=== PATIENT | female | born 1985 | race African-American/Black ===

== ENCOUNTER 2022-06-03 22:13 | Inpatient (IN) | payer OTHER ==
[~2022-06-03] VITALS: Ht 167.6 cm; Wt 108.4 kg
--- NOTE | 2022-06-03 22:28 | NUR ---
BLOOD SUGAR 466
[2022-06-03] MEDS ORDERED: IV NS 0.9% 1,000 ML BAG IV ONE (22:30)
[2022-06-03] MEDS ORDERED: ACETAMINOPHEN ES 500 MG TABLET ONE (22:42)
[2022-06-03] MEDS ORDERED: ONDANSETRON HCL/PF 4 MG/2 ML VIAL ONE (22:42)
--- NOTE | 2022-06-03 22:47 | NUR ---
RAC #20G S/L BLOOD COLLECTED AND SENT TO LAB
[2022-06-03] MEDS ORDERED: ACETAMINOPHEN ES 500 MG TABLET PO ONE (23:00)
[2022-06-03] MEDS ORDERED: ONDANSETRON HCL/PF 4 MG/2 ML VIAL IVP ONE (23:00)
[2022-06-03] MEDS ORDERED: CT SWABBABLE VALVE TRANS SET 1 EA INFUS.SET MC ONE (23:08)
[2022-06-03] MEDS ORDERED: IV NS 0.9% 250 ML IV ONE (23:08)
[2022-06-03] MEDS ORDERED: IOHEXOL-300 100 ML VIAL IV ONE (23:08)
[2022-06-03 23:16] LABS: BASOPHILS % (AUTO) 0.1 % (0.0-2.0); HEMATOCRIT 41 % (33-45); HEMOGLOBIN 12.4 g/dL (11.5-14.8); LYMPHOCYTES # (AUTO) 1.8 K/uL (0.8-4.8); LYMPHOCYTES % (AUTO) 13.2 % (20.0-44.0); MEAN CORPUSCULAR HGB CONC 30 g/dl (31.0-36.0); MEAN CORPUSCULAR VOLUME 79 fL (82-100); MONOCYTES # (AUTO) 0.9 K/uL (0.1-1.30); MONOCYTES % (AUTO) 6.8 % (2.0-12.0); NEUTROPHILS % (AUTO) 79.9 % (43.0-81.0); PLATELET COUNT (AUTO) 479 K/uL (150-450); RED BLOOD CELL COUNT(AUTO) 5.23 MIL/uL (4.0-5.2); WHITE BLOOD COUNT (AUTO) 13.8 K/uL (4.3-11.0)
[2022-06-03 23:39] LABS: ALBUMIN 3.2 g/dL (3.4-5.0); BILIRUBIN,DIRECT 0.2 mg/dL (0.0-0.2); BILIRUBIN,TOTAL 0.4 mg/dL (0.2-1.0); CREATININE 1.2 mg/dL (0.6-1.3)
--- NOTE | 2022-06-03 23:51 | NUR ---
CRITICAL LAB: GLUCOSE [address] LAW GARZA AWARE
[2022-06-03] MEDS ORDERED: INSULIN REGULAR, HUMAN 100 UNIT/ML 10 ML VIAL ONE (23:59)
[2022-06-04] VITALS (35 sets, daily range): BP systolic 124–158; BP diastolic 67–90
[2022-06-04] MEDS ORDERED: IV PREMIX NS +20MEQ KCL 1 L IV PRN
--- NOTE | 2022-06-04 00:05 | NUR ---
MRSA SWAB COLLECTED AND SENT TO LAB. PATIENT'S BELONGINGS LIST DONE.
[2022-06-04] MEDS ORDERED: IV PREMIX NS +20MEQ KCL 1 L IV ONE (00:19)
[2022-06-04] MEDS: INSULIN REGULAR, HUMAN 100 UNITS in IV NS 0.9% 100 ML IV PRN ×4 (00:35→04:27)
--- NOTE | 2022-06-04 01:12 | NUR ---
PT TAKEN FOR CT
--- NOTE | 2022-06-04 01:30 | NUR ---
Accucheck 376, insulin adjusted=7.5 units/hr
--- NOTE | 2022-06-04 01:48 | NUR ---
telephone call from MAURICIO Sol regarding pt's current status.
--- NOTE | 2022-06-04 01:49 | NUR ---
HR noted consistently at 160-170's, ST on the monitor. Dr Gilbert notified, order received for EKG
--- NOTE | 2022-06-04 01:53 | NUR ---
EKG resulted, ST with PVC's, Dr Gilbert made aware
[2022-06-04] MEDS ORDERED: IV NS 0.9% 1,000 ML IV ONE (02:30)
--- NOTE | 2022-06-04 02:38 | NUR ---
Report arnoldo Metzger RN
--- NOTE | 2022-06-04 02:40 | NUR ---
covid swab collected, sent to lab
--- NOTE | 2022-06-04 02:42 | NUR ---
Awaiting update from Sweta [facility] transfer shelby if OK to admit inpatient or if patient will be transferred
--- NOTE | 2022-06-04 03:00 | NUR ---
Accucheck 276, insulin adjusted=5.5 units/hr
[2022-06-04] MEDS ORDERED: SODIUM BICARBONATE SYR 50 MEQ/50 ML DISP.SYRIN IV ONE (03:30)
[2022-06-04] MEDS ORDERED: ONDANSETRON HCL/PF 4 MG/2 ML VIAL IVP PRN (03:30)
[2022-06-04] MEDS ORDERED: IV NS 0.9% 1,000 ML IV PRN (03:30)
[2022-06-04] MEDS ORDERED: CEFTRIAXONE 1 G in IV D5W 50 ML IV SCH (03:30)
[2022-06-04] MEDS ORDERED: DEXTROSE 50%-WATER 50 ML DISP.SYRIN IV PRN ×2 (03:30→14:00)
--- NOTE | 2022-06-04 03:46 | NUR ---
WHOLESALE MANAGER AT PT'S BEDSIDE
[2022-06-04] MEDS: BLOOD SUGAR DIAGNOSTIC 1 EACH STRIP IN SCH ×10 (04:03→13:29)
--- NOTE | 2022-06-04 04:09 | NUR ---
Patient transferred to ICU 260 via ACLS protocol.
[2022-06-04 04:10] LABS: CALCIUM, SERUM 9.9 mg/dL (8.5-10.1); MAGNESIUM 1.6 mg/dL (1.8-2.4); PHOSPHORUS 3.5 mg/dL (2.5-4.9); POTASSIUM 4.6 mmol/L (3.5-5.1)
--- NOTE | 2022-06-04 04:10 | NUR ---
RN NOTES ADMITTED A 36 Y/O FEMALE PATIENT FROM ER WITH DIAGNOSIS OF DKA. ON ROIOM AIR SATING 99% NO SOB NO DISTRESS NOTED AT THIS TIME. [id number] IV ACCESS AT R AC @#20 PATENT FLUSHES WELL RUNNING INSULIN DRIP AT 4.84 UNIT/HR BS CHECKED 242MG/DL. NS 1L + 20 MEQ KCL RUNNING 250ML/HR. SAFELY TRANSFER TO BED. HOOKED TO ON SITE SERVICES SPECIALIST. SKIN ASSESSMENT DONE. BELONGINGS ACCOUNTED. ALL SAFETY MEASURES IN PLACE AT ALL TIMES. HOB ELEVATED. BED ON LOWEST POSITION AND LOCKED. WILL CONTINUE TO MONITOR THE PATIENT
[2022-06-04] MEDS: INSULIN REGULAR, HUMAN 100 UNIT in IV NS 0.9% 99 ML IV PRN ×8 (04:32→07:05)
[2022-06-04] MEDS ORDERED: CEFTRIAXONE 1 G VIAL ONE (04:34)
[2022-06-04] MEDS ORDERED: POTASSIUM CL. PREMIX PERIPHER. 0 ML ONE (04:51)
--- NOTE | 2022-06-04 05:00 | NUR ---
RN NOTES BS CHECKED 217 MG/DL ADJUSTED INSULIN DRIP TO 4.34 PER PROTOCOL
--- NOTE | 2022-06-04 05:10 | NUR ---
RN NOTES RELAYED LACTIC ACID 2.3 TO ASPEN TAGMAN WITH NNO AT THIS TIME
[2022-06-04 06:00] LABS: CREATININE 0.9 mg/dL (0.6-1.3)
--- NOTE | 2022-06-04 06:00 | NUR ---
RN NOTES BS 216MG/DL INSULIN DRIP DECREASE TO 4.32 UNITS/HR., PLUMBER'S ASSISTANT ASPEN INFORMED WITH NEW ORDER TO D/C NS 120 ML/HR AND START D51/2 NS @120 ML/HR
[2022-06-04 06:04] LABS: MAGNESIUM 1.6 mg/dL (1.8-2.4); PHOSPHORUS 3.2 mg/dL (2.5-4.9)
[2022-06-04] MEDS ORDERED: IV D5/0.45 NACL 1,000 ML IV PRN (06:30)
[2022-06-04] MEDS ORDERED: Potassium Chloride 20 MEQ in IV NS 0.9% 1,000 ML IV SCH (07:00)
--- NOTE | 2022-06-04 07:05 | NUR ---
RN NOTES BS 209 MG/DL INSULIN DRID DECREASE TO 4.18 U/HR. ALL DUE MEDS GIVEN ORDERD. ALL NEEDS ATTENDED. KEPT CLEAN AND DSRY AT ALL TIMES. ENDORSED TO MORNING RN FOR AROLDO
[2022-06-04] MEDS: PANTOPRAZOLE 40 MG VIAL IV SCH (09:14)
[2022-06-04] MEDS: Magnesium 1GM/D5W 100ML PREMIX 100 ML IV SCH ×2 (09:14→10:20)
[2022-06-04] MEDS ORDERED: HYDR-3980 PO (09:31)
[2022-06-04] MEDS ORDERED: ALPR0.5T8 PO (09:31)
[2022-06-04] MEDS ORDERED: METF-440 PO (09:31)
--- NOTE | 2022-06-04 09:34 | NUR ---
DR. DIAZ WAS NOTIFIED REGARDING: EKG RESULT, RECENT NJ=371, AND RECENT BMP/LABS. AWAITING MD RESPONSE.
--- NOTE | 2022-06-04 10:28 | NUR ---
DR. DIAZ AT PATIENT'S BEDSIDE SEEN PT.
[2022-06-04 10:53] LABS: CALCIUM, SERUM 9.6 mg/dL (8.5-10.1); CREATININE 0.9 mg/dL (0.6-1.3); POTASSIUM 3.5 mmol/L (3.5-5.1)
[2022-06-04] MEDS ORDERED: INSULIN GLARGINE, 100 UNIT/ML CARTRIDGE SQ ONE (11:30)
[2022-06-04] MEDS: ENOXAPARIN SODIUM 40 MG/0.4 ML DISP.SYRIN SQ SCH (11:49)
--- NOTE | 2022-06-04 12:02 | NUR ---
DR. JAVIER SEEN PATIENT NOW.
[2022-06-04 13:34] LABS: BILIRUBIN,URINE 2+ (NEGATIVE); COLOR,URINE YELLOW (YELLOW); LEUKOCYTE ESTERASE ,URINE NEGATIVE (NEGATIVE); NITRITE, URINE NEGATIVE (NEGATIVE); PROTEIN,URINE TRACE mg/dl (NEGATIVE); UGLUCOSE 1+ mg/dL (NEGATIVE); UROBILINOGEN,URINE 0.2 EU/dL (0.2)
[2022-06-04 13:47] LABS: BACTERIA,URINE Few /HPF (None Seen); WBC,URINE NONE SEEN /HPF (0-3)
[2022-06-04 13:48] LABS: SQUAMOUS EPITHELIAL CELL,UR Moderate /HPF (None Seen); URINE AMORPHOUS URATE Many /HPF (None Seen)
[2022-06-04] MEDS: IV NS 0.9% 1,000 ML IV SCH ×2 (13:59→21:12)
[2022-06-04] MEDS: INSULIN REGULAR, HUMAN 100 UNIT/ML 3 ML VIAL SQ PRN (17:28)
[2022-06-04] MEDS: BLOOD SUGAR DIAGNOSTIC 1 EACH STRIP VI SCH ×2 (17:29→22:00)
--- NOTE | 2022-06-04 18:44 | NUR ---
LEFT A MESSAGE TO DR. DIAZ THAT PATIENT IS REQUESTING PAIN MEDICINE FOR ABDOMINAL ACHE. AWAITING MD RESPONSE. WILL ENDORSE TO BOBY BEDOYA.
--- NOTE | 2022-06-04 18:58 | NUR ---
ENDORSED TO APOLINAR THAT MADE DR. DIAZ AWARE THAT PATIENT IS REQUESTING PAIN MEDICINE FOR ABDOMINAL ACHE. STILL AWAITING MD RESPONSE AND TO MAKE FOLLOW-UP, MANN STATES "YES."
[2022-06-04] MEDS: *INSULIN REGULAR(HUMULIN R)HUM 100 UNIT/ML VIAL SQ PRN (21:19)
[2022-06-05] VITALS (13 sets, daily range): BP systolic 128–152; BP diastolic 46–82
--- NOTE | 2022-06-05 | NUR ---
RECEIVED THE PT REST IN BED. AWAKE, ALERT FOLLOW COMMANDS. BIOMETRICIAN SHOWING NSR. IV RT UPPER ARM MID LINE. IVF NS 150 ML/H. HOB ELEVATED WILL CONTINUE TO MONITOR VITALS
[2022-06-05] MEDS: IV NS 0.9% 1,000 ML IV SCH ×4 (03:44→23:28)
[2022-06-05] MEDS: CEFTRIAXONE 1 G in IV D5W 50 ML IV SCH (04:13)
[2022-06-05] MEDS: ACETAMINOPHEN 325 MG TABLET PO PRN ×3 (04:13→16:22)
[2022-06-05 04:47] LABS: CALCIUM, SERUM 9.3 mg/dL (8.5-10.1); CREATININE 0.6 mg/dL (0.6-1.3); MAGNESIUM 1.4 mg/dL (1.8-2.4); PHOSPHORUS 3.9 mg/dL (2.5-4.9)
[2022-06-05 04:48] LABS: BASOPHILS # (AUTO) 0.1 K/uL (0.0-0.2); BASOPHILS % (AUTO) 0.7 % (0.0-2.0); EOSINOPHILS % (AUTO) 1.2 % (0.0-6.0); HEMATOCRIT 29 % (33-45); HEMOGLOBIN 9.1 g/dL (11.5-14.8); LYMPHOCYTES # (AUTO) 3.7 K/uL (0.8-4.8); LYMPHOCYTES % (AUTO) 40.1 % (20.0-44.0); MEAN CORPUSCULAR HGB CONC 32 g/dl (31.0-36.0); MEAN CORPUSCULAR VOLUME 76 fL (82-100); MONOCYTES # (AUTO) 0.9 K/uL (0.1-1.30); NEUTROPHILS # (AUTO) 4.4 K/uL (1.8-8.9); PLATELET COUNT (AUTO) 315 K/uL (150-450); RED BLOOD CELL COUNT(AUTO) 3.79 MIL/uL (4.0-5.2); WHITE BLOOD COUNT (AUTO) 9.3 K/uL (4.3-11.0)
--- NOTE | 2022-06-05 04:48 | NUR ---
REVIEW APPRAISER. AM CARE GIVEN. REMAINING SAME IVF NS 150 ML/H, HOB ELEVATED. PT C/O HEADACHE TYLENOL GIVEN PER ORDER. WILL CONTINUE TO MONITOR VITALS.
--- NOTE | 2022-06-05 07:27 | NUR ---
WOUND CARE CONSULT: PT PRESENTS WITH SOME RASH/SKIN IRRITATION TO PERIANAL AREA/INNER BUTTOCKS, BREASTFOLDS AND PERINEUM, PRESENT ON ADMISSION. RECOMMENDATIONS MADE FOR SKIN PROTECTION. DISCUSSED WITH NURSING STAFF. MD IN AGREEMENT WITH PLAN OF CARE. PT IS CONTINENT AND INDEPENDENT WITH BED MOBILITY.
[2022-06-05] MEDS ORDERED: Z GUARD REMEDY 4 OZ OINT TP PRN (07:30)
[2022-06-05] MEDS: BLOOD SUGAR DIAGNOSTIC 1 EACH STRIP VI SCH ×4 (07:30→22:33)
--- NOTE | 2022-06-05 07:44 | NUR ---
rn notes get patient a/o x4, was complaining of headache, administered Tylenol 650 mg po prn, also has itching on vaginal area, skin assessment done get order wound consult. needs assisted, and anticipated. call light within to reach. will follow up.
[2022-06-05] MEDS: PANTOPRAZOLE 40 MG VIAL IV SCH (08:30)
[2022-06-05] MEDS: POTASSIUM CHLORIDE 20 MEQ TAB.PRT.SR PO SCH ×3 (08:31→09:52)
[2022-06-05] MEDS: CLOTRIMAZOLE 1% 15 GM TUBE TP SCH ×2 (08:31→17:41)
[2022-06-05] MEDS: Magnesium 1GM/D5W 100ML PREMIX 100 ML IV SCH ×2 (08:32→09:41)
[2022-06-05] MEDS: ENOXAPARIN SODIUM 40 MG/0.4 ML DISP.SYRIN SQ SCH (08:36)
[2022-06-05 08:44] LABS: ABG BASE EXCESS -5.6 mmol/L; ABG OXYGEN SATURATION 92.2 % (92.0-98.5); ABG PCO2 34.3 mmHg (35.0-45.0); ABG PH 7.362 (7.350-7.450); ABG PO2 65.6 mmHg (75.0-100.0); COHb 0.9 % (0.5-1.5); MetHb 0.1 % (0.0-1.5); O2Hb 91.3 % (94.0-97.0); SITE, ABG Other; VENT MODE, BG room air
[2022-06-05] MEDS: Z GUARD REMEDY 4 OZ OINT TP SCH (09:05)
[2022-06-05] MEDS: INSULIN REGULAR, HUMAN 100 UNIT/ML 3 ML VIAL SQ PRN ×3 (09:40→17:52)
--- NOTE | 2022-06-05 10:00 | NUR ---
rn notes get verbal order via hospitalist Dr Valerio psych consultation, because of hard to follow direction, anxious, crying, arguing each procedure, and removing tubing.
--- NOTE | 2022-06-05 10:30 | NUR ---
rn notes transferred patient to the med/surg room 111 bed 1 within stable condition, vss, patient room air. bedside report given AURELIANO Josue follow plan of care.
--- NOTE | 2022-06-05 10:35 | NUR ---
rn notes RECEIVED REPORT FROM [facility] PARTS REPRESENTATIVE FOR CONTUITY OF CARE. PT STABLE CONDITION. ALERT AND ORIENTED X4.
[2022-06-05] MEDS ORDERED: POTASSIUM CHLORIDE 20 MEQ TAB.PRT.SR PO SCH (11:30)
--- NOTE | 2022-06-05 12:06 | NUR ---
RN NOTE NOTIFIED THAT PT WANTS TO SPEAK WITH . SPOKE WKITH PATIENT AND WAS UPDATED ABOUT CONDITION
[2022-06-05] MEDS ORDERED: HYDROCODONE/APAP 10/325MG TABLET PO PRN (13:30)
[2022-06-05] MEDS ORDERED: ALPRAZOLAM 0.5 MG TABLET PO PRN (13:30)
--- NOTE | 2022-06-05 14:00 | NUR ---
RN NOTE ROUNDS MADE. PT ROOM SUSPICIOUS SMELL OF MARIJUANA. NOTIFIED SECURITY. SECRUITY EDUCATED AND EXPLAINED THE RISKS OF SMOKING IN THE ROOM. PT AND RELATIVE AT BEDSIDE VERBALIZED UNDERSTANDING
--- NOTE | 2022-06-05 18:57 | NUR ---
RN NOTE NOTIFIED THAT PT WANTS NORMAL SALINE TO BE DISCONTINUED. AWARE AND SAID OKAY.
--- NOTE | 2022-06-05 19:15 | NUR ---
MS AURELIANO CLOSING NOTE RECEIVED PT SITTING ON BED, A/O X4. AT BEDSIDE. ON ROOM AIR TOLERATING WELL. DENIES ANY PAIN AT THIS TIME. MISAEL MIDLINE #18G, PATENT AND FLUSHES WELL. SAFETY MEASURES IN PLACE: BED LOCKED AND IN LOW POSITION, SIDE RAILS UP X2, CALL LIGHT AND TRAY TABLE WITHIN REACH. WILL CONTINUE TO MONITOR AND ASSIST. Addendum: 06/05/22 at 2049 by COOKIE BENNETT RN CORRECTION: MS BEDOYA OPENING NOTE
--- NOTE | 2022-06-05 19:58 | NUR ---
RN CLOSING NOTE PT ALERT AND ORIENTED X4. PT IS MED SURG STATUS. FAMILY AT BEDSIDE. PT IS ON ROOM AIR TOLERATING WELL. RUPPER ARM MIDLINE. PT MED SURG STATUS. IV INTACT PATENT AND FLUSHES WELL. PT IS AMBULATORY. PT COMPLAINS OF NO PAIN OR DISCOMFORT NOTED AT THIS TIME. PT IS MED SURG STATUS. ALL SAFETY MEASURES IN PLACE PER HOSPITAL PROTOCOL.
[2022-06-05] MEDS ORDERED: INSULIN GLARGINE, 100 UNIT/ML CARTRIDGE SQ SCH ×2 (22:00)
[2022-06-05] MEDS: *INSULIN REGULAR(HUMULIN R)HUM 100 UNIT/ML VIAL SQ PRN (22:45)
[2022-06-06] VITALS: BP 138/82
[2022-06-06] MEDS: ACETAMINOPHEN 325 MG TABLET PO PRN (02:46)
[2022-06-06 04:00] VITALS: BP 135/75
[2022-06-06 04:17] LABS: BASOPHILS % (AUTO) 0.3 % (0.0-2.0); EOSINOPHILS % (AUTO) 1.3 % (0.0-6.0); HEMATOCRIT 27 % (33-45); HEMOGLOBIN 8.7 g/dL (11.5-14.8); LYMPHOCYTES # (AUTO) 3.1 K/uL (0.8-4.8); MEAN CORPUSCULAR HGB CONC 32 g/dl (31.0-36.0); MEAN CORPUSCULAR VOLUME 75 fL (82-100); MONOCYTES # (AUTO) 0.7 K/uL (0.1-1.30); MONOCYTES % (AUTO) 9.1 % (2.0-12.0); NEUTROPHILS % (AUTO) 50.3 % (43.0-81.0); PLATELET COUNT (AUTO) 274 K/uL (150-450); RED BLOOD CELL COUNT(AUTO) 3.59 MIL/uL (4.0-5.2); WHITE BLOOD COUNT (AUTO) 7.9 K/uL (4.3-11.0)
[2022-06-06 04:29] LABS: CREATININE 0.5 mg/dL (0.6-1.3); MAGNESIUM 1.6 mg/dL (1.8-2.4); PHOSPHORUS 4.3 mg/dL (2.5-4.9); POTASSIUM 3.6 mmol/L (3.5-5.1)
[2022-06-06] MEDS ORDERED: CEFTRIAXONE 1 G VIAL ONE (04:29)
[2022-06-06] MEDS: CEFTRIAXONE 1 G in IV D5W 50 ML IV SCH (04:38)
[2022-06-06] MEDS: BLOOD SUGAR DIAGNOSTIC 1 EACH STRIP VI SCH (06:53)
[2022-06-06] MEDS: INSULIN REGULAR, HUMAN 100 UNIT/ML 3 ML VIAL SQ PRN (06:56)
--- NOTE | 2022-06-06 07:15 | NUR ---
TECHNICAL IMPLEMENTATION LEAD CLOSING NOTE PT LYING ON BED AWAKE AT THIS TIME. A/O X4, AT BEDSIDE, COOPERATIVE. ASKED MULTIPLE TIMES ABOUT UPDATES ON DISCHARGE TIMELINE. STABLE ON ROOM AIR TOLERATING WELL. ON TELE MONITOR READING SR 91. DENIES ANY PAIN AT THIS TIME. MISAEL MIDLINE #18G, PATENT AND FLUSHES WELL. ALL CARE PROVIDED AND MEDS TOLERATED WELL. SAFETY MEASURES MAINTAINED: BED LOCKED AND IN LOW POSITION, SIDE RAILS UP X2, CALL LIGHT AND TRAY TABLE WITHIN REACH. WILL ENDORSE AROLDO TO DAY SHIFT NURSE.
[2022-06-06] MEDS ORDERED: PANTOPRAZOLE 40 MG TABLET.DR PO SCH (07:30)
[2022-06-06 07:48] LABS: THYROID STIMULATING HORMONE < 0.007 uIU/mL (0.358-3.74)
[2022-06-06 08:00] VITALS: BP 129/74
[2022-06-06 08:25] VITALS: BP 129/74
[2022-06-06] MEDS: ENOXAPARIN SODIUM 40 MG/0.4 ML DISP.SYRIN SQ SCH (08:27)
[2022-06-06] MEDS: Z GUARD REMEDY 4 OZ OINT TP SCH (08:28)
[2022-06-06] MEDS: CLOTRIMAZOLE 1% 15 GM TUBE TP SCH (08:28)
--- NOTE | 2022-06-06 08:45 | NUR ---
RN NOTE PATIENT ASKED TO GO HOME, I INFORMED HER YOU CAN WAIT AND SEE THE DR. NICHOLAS OTHERWISE YOU CAN LEAVE AGAINST AMA; PATIENT STATED THAT SHE WANT TO HAVE PRESCRIPTION BEFORE SHE LEAVES, DR. NICHOLAS NOTIFIED BY TEXT SHE STATED THAT SHE WILL COME IN 45 MINUTES TO TALK TO THE PATIENT. I INFORMED PATIENT CAN YOU WAIT 45 MIN SHE SAID YES.
[2022-06-06] MEDS ORDERED: CARVEDILOL 12.5 MG TABLET PO SCH (09:00)
[2022-06-06] MEDS ORDERED: METF-440 PO (10:56)
[2022-06-06] MEDS ORDERED: EMPA10TA PO (10:56)
[2022-06-06] MEDS ORDERED: CARV12.52 PO (10:56)
--- NOTE | 2022-06-06 12:42 | NUR ---
FOUR CORNER FORMER MACHINE OPERATOR NOTE DR. NICHOLAS DISCHARGE THE PATIENT WHEN PATIENT REQUESTED TO LEAVE. ALL DISCHARGE INSTRUCTION NEW MEDICATION EDUCATION LIST ALL GIVEN TO THE PATIENT, PATIENT VERBALIZED UNDERSTANDING. PATIENT'S VITALS WITHIN NORMAL LEVEL UPON DISCHARGE. PATIENT'S MISAEL MIDLINE REMOVED. DISCHARGE CONSENT FORM AND BELONGING LIST FORM SIGNED BY PATIENT, PLACED IN PATIENT'S CHART. PATIENT INSTRUCTED ON COMING BACK TO ER IF SHE DEVELOPED NEW SYMPTOMS.
== END 2022-06-06 11:29 | disposition home or self-care (01) | DRG 420 ==
LOC: ER 22:24 → ICU 06-04 02:19 → MEDSG1 06-05 09:59 → TELE1 06-05 10:27
PROVIDERS: ADMIT Nurse Practitioner Acute Care; ATTEND Nurse Practitioner Acute Care
PROC: 05HD33Z Insertion of Infusion Device into Right Cephalic Vein, Percutaneous Approach (ICD-10-PCS; principal; 2022-06-04)
DX: E11.10 Type 2 diabetes mellitus with ketoacidosis without coma (principal); D68.59 Other primary thrombophilia; E44.1 Mild protein-calorie malnutrition; E88.09 Other disorders of plasma-protein metabolism, not elsewhere classified; D75.839 Thrombocytosis, unspecified; J98.11 Atelectasis; E87.1 Hypo-osmolality and hyponatremia; G47.33 Obstructive sleep apnea (adult) (pediatric); Z20.822 Contact with and (suspected) exposure to COVID-19; Z79.84 Long term (current) use of oral hypoglycemic drugs; Z68.35 Body mass index [BMI] 35.0-35.9, adult; D72.829 Elevated white blood cell count, unspecified; E66.01 Morbid (severe) obesity due to excess calories; R00.0 Tachycardia, unspecified; E83.42 Hypomagnesemia; E87.6 Hypokalemia; D25.9 Leiomyoma of uterus, unspecified
CPT/HCPCS: 36410; 36415; 36600; 71045-TC; 80048-TC; 80076-TC; 81001; 82803-TC; 82962-TC; 83605-TC; 83690-TC; 83735-TC; 84100-TC; 84439-TC; 84443-TC; 84703-TC; 85025-TC; 87081-TC; 87086-TC; 93307-TC; C9113; G0378; J0696; J1650; J1815; J2405; J3475; J3480; J3490; J7030; J7050; J7060; Q9967

== ENCOUNTER 2022-08-13 14:32 | Emergency (ER) | payer OTHER ==
[~2022-08-13] VITALS: Ht 167.6 cm; Wt 108.9 kg
[~2022-08-13 14:32] MED LIST: ALPR0.5T8 PO; CARV12.52 PO; EMPA10TA PO; HYDR-3980 PO; METF-440 PO
[2022-08-13] MEDS ORDERED: IV NS 0.9% 1,000 ML BAG IV ONE (18:00)
[2022-08-13 18:53] LABS: BASOPHILS % (AUTO) 0.4 % (0.0-2.0); EOSINOPHILS % (AUTO) 1.2 % (0.0-6.0); HEMATOCRIT 37 % (33-45); LYMPHOCYTES # (AUTO) 4.5 K/uL (0.8-4.8); LYMPHOCYTES % (AUTO) 44.5 % (20.0-44.0); MEAN CORPUSCULAR HGB CONC 33 g/dl (31.0-36.0); MEAN CORPUSCULAR VOLUME 78 fL (82-100); MONOCYTES # (AUTO) 0.7 K/uL (0.1-1.30); MONOCYTES % (AUTO) 7.5 % (2.0-12.0); NEUTROPHILS # (AUTO) 4.7 K/uL (1.8-8.9); NEUTROPHILS % (AUTO) 46.4 % (43.0-81.0); PLATELET COUNT (AUTO) 378 K/uL (150-450)
[2022-08-13 19:07] LABS: CARBON DIOXIDE 26 mmol/L (21-32); CHLORIDE 88 mmol/L (98-107); CREATININE 0.8 mg/dL (0.6-1.3); POTASSIUM 4.6 mmol/L (3.5-5.1); SODIUM SERUM 122 mmol/L (136-145); UREA NITROGEN, BLOOD 11 mg/dL (7-18)
[2022-08-13 19:10] LABS: GLUCOSE 726 mg/dL (74-106)
[2022-08-13 19:16] LABS: ALANINE AMINOTRANSFERASE 18 U/L (12-78); ALBUMIN 3.3 g/dL (3.4-5.0); ALKALINE PHOSPHATASE 224 U/L (46-116); ASPARTATE AMINOTRANSFERASE 8 U/L (15-37); BILIRUBIN,TOTAL 0.3 mg/dL (0.2-1.0); TOTAL PROTEIN, SERUM 7.4 g/dL (6.4-8.2)
[2022-08-13] MEDS ORDERED: IV NS 0.9% 1,000 ML IV ONE (19:30)
--- NOTE | 2022-08-13 20:37 | NUR ---
URINE COLLECTED AND SENT TO LAB
[2022-08-13] MEDS ORDERED: LANC-576 MC (21:04)
[2022-08-13] MEDS ORDERED: BLOO-1281 MC (21:04)
[2022-08-13] MEDS ORDERED: BENZ-13 PO (21:04)
[2022-08-13] MEDS ORDERED: LORA10TA7 PO (21:04)
[2022-08-13 22:07] LABS: BILIRUBIN,URINE NEGATIVE (NEGATIVE); COLOR,URINE YELLOW (YELLOW); LEUKOCYTE ESTERASE ,URINE NEGATIVE (NEGATIVE); NITRITE, URINE NEGATIVE (NEGATIVE); PH,URINE 6.5 (5.0-8.0); PROTEIN,URINE NEGATIVE (NEGATIVE); UGLUCOSE 3+ mg/dL (NEGATIVE); UROBILINOGEN,URINE 0.2 EU/dL (0.2)
[2022-08-13 22:20] LABS: BACTERIA,URINE None seen /HPF (None Seen); RBC,URINE 0-2 /HPF (0-2); SQUAMOUS EPITHELIAL CELL,UR 0-2 /HPF (None Seen); WBC,URINE 0-2 /HPF (0-3)
[2022-08-13 22:21] LABS: YEAST,URINE Few /HPF (None Seen)
[2022-08-13] MEDS ORDERED: FLUC150T PO (23:06)
--- NOTE | 2022-08-13 23:15 | NUR ---
Patient discharged to home in stable condition. Written and verbal after care instructions given. Patient verbalizes understanding of instruction.IV removed. Catheter intact and site benign. Pressure and 4x4 applied to site. No bleeding noted.
[2022-08-14 04:07] VITALS: BP 145/69
== END 2022-08-13 23:15 | disposition home or self-care (01) ==
LOC: ER 14:39
DX: J06.9 Acute upper respiratory infection, unspecified (principal); E11.65 Type 2 diabetes mellitus with hyperglycemia; Z60.2 Problems related to living alone; Z79.899 Other long term (current) drug therapy
CPT/HCPCS: 99285; 96360; 71045; 96361; 93005; 85025; 80048; 80076; 84703; 81001; 36415; 84484; 83880; 82962; J7030

== ENCOUNTER 2022-09-21 17:12 | Inpatient (IN) | payer OTHER ==
[~2022-09-21] VITALS: Ht 165.1 cm; Wt 97.1 kg
[~2022-09-21 17:12] MED LIST changes: +BENZ-13 PO; +BLOO-1281 MC; +FLUC150T PO; +LANC-576 MC; +LORA10TA7 PO
[2022-09-21] MEDS ORDERED: IV NS 0.9% 1,000 ML IV ONE ×2 (17:30→19:00)
[2022-09-21] MEDS ORDERED: ONDANSETRON HCL/PF 4 MG/2 ML VIAL ONE ×2 (17:45→19:06)
--- NOTE | 2022-09-21 17:49 | NUR ---
[id number] HOME C/O LOWER ABDOMEN/PELVIC AND VAGINAL PAIN, +NAUSEA X 2 DAYS ALSO C/O SORETHROAT
[2022-09-21] MEDS ORDERED: ONDANSETRON HCL/PF - ER 4 MG/2 ML VIAL IV ONE ×2 (18:00→19:00)
[2022-09-21] MEDS ORDERED: IV NS 0.9% 1,000 ML BAG IV ONE (18:00)
[2022-09-21] MEDS ORDERED: CEFTRIAXONE 1GM BAG (ER ONLY) 50 ML IV ONE (18:00)
[2022-09-21 18:34] LABS: BASOPHILS % (AUTO) 0.1 % (0.0-2.0); EOSINOPHILS % (AUTO) 0.1 % (0.0-6.0); HEMATOCRIT 47 % (33-45); HEMOGLOBIN 14.2 g/dL (11.5-14.8); LYMPHOCYTES # (AUTO) 1.4 K/uL (0.8-4.8); LYMPHOCYTES % (AUTO) 15.1 % (20.0-44.0); MEAN CORPUSCULAR HGB CONC 30 g/dl (31.0-36.0); MEAN CORPUSCULAR VOLUME 81 fL (82-100); MONOCYTES # (AUTO) 0.8 K/uL (0.1-1.30); MONOCYTES % (AUTO) 8.3 % (2.0-12.0); NEUTROPHILS # (AUTO) 7.3 K/uL (1.8-8.9); NEUTROPHILS % (AUTO) 76.4 % (43.0-81.0); PLATELET COUNT (AUTO) 337 K/uL (150-450); RED BLOOD CELL COUNT(AUTO) 5.78 MIL/uL (4.0-5.2); WHITE BLOOD COUNT (AUTO) 9.6 K/uL (4.3-11.0)
[2022-09-21 18:50] LABS: CREATININE 0.9 mg/dL (0.6-1.3); POTASSIUM 4.8 mmol/L (3.5-5.1)
[2022-09-21 18:52] LABS: ALBUMIN 3.2 g/dL (3.4-5.0); BILIRUBIN,DIRECT 0.1 mg/dL (0.0-0.2); BILIRUBIN,TOTAL 0.5 mg/dL (0.2-1.0); TOTAL PROTEIN, SERUM 8.9 g/dL (6.4-8.2)
[2022-09-21] MEDS ORDERED: MORPHINE SULFATE INJ 2 MG/ML DISP.SYRIN IV ONE ×2 (19:00→21:00)
[2022-09-21] MEDS ORDERED: MORPHINE SULFATE INJ 4 MG/ML DISP.SYRIN ONE (19:07)
[2022-09-21 19:31] LABS: BILIRUBIN,URINE 2+ (NEGATIVE); COLOR,URINE YELLOW (YELLOW); LEUKOCYTE ESTERASE ,URINE NEGATIVE (NEGATIVE); NITRITE, URINE NEGATIVE (NEGATIVE); PH,URINE 5.5 (5.0-8.0); PROTEIN,URINE 1+ mg/dl (NEGATIVE); UGLUCOSE 2+ mg/dL (NEGATIVE); UROBILINOGEN,URINE 0.2 EU/dL (0.2)
--- NOTE | 2022-09-21 19:38 | NUR ---
Patient AOx4, able to express er concerns, Patients BF at bedside, per pts request. Patietn states feeling weak aand fatigue. Discussed plan of care, patietn verbalizedagreement. Bedside commode set up in room per patients request, does not wish to use bed strong. All safety precatution explained to patient and implemented. Will continue to monitor throughout shift.
--- NOTE | 2022-09-21 19:45 | NUR ---
Urine collected, sent to lab
--- NOTE | 2022-09-21 19:48 | NUR ---
Blood Culture collected, sent to lab
[2022-09-21] MEDS ORDERED: IV PREMIX NS +20MEQ KCL 1 L IV PRN (20:00)
[2022-09-21] MEDS ORDERED: IV D5/ 0.9% NACL 1,000 ML IV PRN (20:00)
--- NOTE | 2022-09-21 20:08 | NUR ---
[facility] ph. [phone] clinical information on patient for possible transfer. fx. [phone]
[2022-09-21 20:17] LABS: SITE, VBG Right Radial; VBG AaDO2 15.5 mmHg; VBG COHb 0.8 %; VBG MetHb 0.1 %; VBG O2Hb 96.2 %; VBG OXYGEN SATURATION 97.1 %; VENT MODE, VBG Room Air
[2022-09-21] MEDS ORDERED: IOHEXOL-300 100 ML VIAL IV ONE (20:22)
[2022-09-21] MEDS ORDERED: CT SWABBABLE VALVE TRANS SET 1 EA INFUS.SET MC ONE (20:22)
[2022-09-21] MEDS ORDERED: IV NS 0.9% 250 ML IV ONE (20:22)
--- NOTE | 2022-09-21 20:27 | NUR ---
DR SAAVEDRA ON PHONE CALL [facility]
[2022-09-21 20:38] LABS: WBC,URINE 0-2 /HPF (0-3)
[2022-09-21 20:39] LABS: BACTERIA,URINE Few /HPF (None Seen); MUCUS,URINE Moderate /LPF (None Seen); SQUAMOUS EPITHELIAL CELL,UR 0-2 /HPF (None Seen)
[2022-09-21 20:48] LABS: CREATININE 0.8 mg/dL (0.6-1.3); MAGNESIUM 1.9 mg/dL (1.8-2.4); PHOSPHORUS 6.2 mg/dL (2.5-4.9); POTASSIUM 4.9 mmol/L (3.5-5.1)
--- NOTE | 2022-09-21 20:52 | NUR ---
LAB CALLED FOR CRITICAL RESULT CO2 - 6. DR. SIMPSON AWARE.
[2022-09-21 21:05] LABS: CALCIUM, SERUM 9.5 mg/dL (8.5-10.1)
--- NOTE | 2022-09-21 21:05 | NUR ---
Pending Insulin drip order.
--- NOTE | 2022-09-21 21:19 | NUR ---
Per Gustavo LETTERSET PRESS SET UP OPERATOR, patietn to start Insulin drip once she is transfered to ICU
[2022-09-21] MEDS ORDERED: MORPHINE SULFATE INJ 2 MG/ML DISP.SYRIN ONE (21:20)
[2022-09-21] MEDS ORDERED: ACETAMINOPHEN 325 MG TABLET PO PRN (21:30)
[2022-09-21] MEDS ORDERED: ENOXAPARIN SODIUM 40 MG/0.4 ML DISP.SYRIN SQ SCH (21:30)
[2022-09-21] MEDS ORDERED: MAG HYDROX/AL HYDROX/SIMETH 30 ML UDC PO PRN (21:30)
[2022-09-21] MEDS ORDERED: MAGNESIUM HYDROXIDE 30 ML UDC PO PRN (21:30)
[2022-09-21] MEDS ORDERED: Z GUARD REMEDY 4 OZ OINT TP PRN (21:30)
[2022-09-21] MEDS ORDERED: ONDANSETRON HCL/PF 4 MG/2 ML VIAL IVP PRN (21:30)
[2022-09-21] MEDS ORDERED: IV NS 0.9% 1,000 ML IV PRN (21:30)
[2022-09-21] MEDS ORDERED: ZOLPIDEM TARTRATE 5 MG TABLET PO PRN (21:30)
[2022-09-21 22:29] LABS: CALCIUM, SERUM 9.7 mg/dL (8.5-10.1); CREATININE 0.9 mg/dL (0.6-1.3); MAGNESIUM 2.1 mg/dL (1.8-2.4); PHOSPHORUS 6.1 mg/dL (2.5-4.9); POTASSIUM 5.1 mmol/L (3.5-5.1)
[2022-09-21 22:31] LABS: CHOLESTEROL 144 mg/dL (<200); HDL CHOLESTEROL 30 mg/dL (40-60); LDL 59 mg/dL (0-99); TRIGLYCERIDES 365 mg/dL (30-150)
--- NOTE | 2022-09-21 22:48 | NUR ---
COVID swab collected, sent to lab.
[2022-09-21] MEDS: HYDROCODONE/APAP 5/325MG TABLET PO PRN (22:58)
[2022-09-21] MEDS ORDERED: HYDROMORPHONE 1 MG/1 ML DISP.SYRIN IV ONE (23:30)
[2022-09-21] MEDS: INSULIN REGULAR, HUMAN 100 UNITS in IV NS 0.9% 100 ML IV PRN ×2 (23:46)
[2022-09-22] VITALS (17 sets, daily range): BP systolic 136–164; BP diastolic 77–104
[2022-09-22 00:41] LABS: CALCIUM, SERUM 9.5 mg/dL (8.5-10.1); PHOSPHORUS 6.4 mg/dL (2.5-4.9); POTASSIUM 5.6 mmol/L (3.5-5.1)
[2022-09-22] MEDS: INSULIN REGULAR, HUMAN 100 UNITS in IV NS 0.9% 100 ML IV PRN ×14 (00:43→06:45)
[2022-09-22] MEDS ORDERED: HYDROMORPHONE 1 MG/1 ML DISP.SYRIN ONE (00:46)
[2022-09-22 04:59] LABS: ABG BASE EXCESS -21.3 mmol/L; ABG PCO2 17.4 mmHg (35.0-45.0); ABG PH 7.133 (7.350-7.450); ABG PO2 114.2 mmHg (75.0-100.0); COHb 0.3 % (0.5-1.5); MetHb 0.3 % (0.0-1.5); O2Hb 96.7 % (94.0-97.0); SITE, ABG Right Radial; VENT MODE, BG ROOM AIR
--- NOTE | 2022-09-22 05:00 | NUR ---
RT NOTE ABG TAKEN AND CRITICAL RESULTS REPORTED TO DITCH RIDER.
[2022-09-22 05:51] LABS: BASOPHILS % (AUTO) 0.1 % (0.0-2.0); EOSINOPHILS % (AUTO) 0.1 % (0.0-6.0); HEMATOCRIT 47 % (33-45); HEMOGLOBIN 13.8 g/dL (11.5-14.8); LYMPHOCYTES # (AUTO) 2.2 K/uL (0.8-4.8); LYMPHOCYTES % (AUTO) 20.1 % (20.0-44.0); MEAN CORPUSCULAR HGB CONC 30 g/dl (31.0-36.0); MEAN CORPUSCULAR VOLUME 83 fL (82-100); MONOCYTES # (AUTO) 1.3 K/uL (0.1-1.30); MONOCYTES % (AUTO) 11.6 % (2.0-12.0); NEUTROPHILS # (AUTO) 7.6 K/uL (1.8-8.9); NEUTROPHILS % (AUTO) 68.1 % (43.0-81.0); PLATELET COUNT (AUTO) 258 K/uL (150-450); RED BLOOD CELL COUNT(AUTO) 5.61 MIL/uL (4.0-5.2); WHITE BLOOD COUNT (AUTO) 11.1 K/uL (4.3-11.0)
[2022-09-22 06:06] LABS: CALCIUM, SERUM 9.5 mg/dL (8.5-10.1); PHOSPHORUS 4.3 mg/dL (2.5-4.9); POTASSIUM 4.8 mmol/L (3.5-5.1)
--- NOTE | 2022-09-22 06:07 | NUR ---
CRITICAL LAB CO2 - 8
--- NOTE | 2022-09-22 06:52 | NUR ---
BED ASSIGNED IS 252
--- NOTE | 2022-09-22 07:58 | NUR ---
report given to lucero guerrero
--- NOTE | 2022-09-22 08:27 | NUR ---
MOVED TO INPATIENT ROOM SAFELY PER ACLS PROTOCOL
[2022-09-22] MEDS ORDERED: IV D5/ 0.9% NACL 1,000 ML IV PRN (08:30)
--- NOTE | 2022-09-22 08:30 | NUR ---
ICU/RN PT ADMITED FROM ER.DUE TO ABDOMINAL PAIN ,WEAKNESS ,DKA.PT IS AWAKE ,ALERT.ORIENTED.HR-150 BPM.BP HIGH.COMPLAINING OF PAIN .ON INSULIN DRIP.IV FLUIDS ORDERED.VERY WEAK .AFEBRILE.SKIN INTACT.FAMILY AT BEDSIDE.
[2022-09-22] MEDS: PANTOPRAZOLE 40 MG VIAL IV SCH (08:51)
[2022-09-22] MEDS: HYDROCODONE/APAP 5/325MG TABLET PO PRN ×3 (08:52→23:19)
[2022-09-22] MEDS: ENOXAPARIN SODIUM 40 MG/0.4 ML DISP.SYRIN SQ SCH (08:52)
--- NOTE | 2022-09-22 09:00 | NUR ---
ICU/RN PT C/O OF PAIN, RESTLESS.NORCO 1 TAB PO GIVEN ORDERED. CONTINUE MONITORING.
[2022-09-22] MEDS: BLOOD SUGAR DIAGNOSTIC 1 EACH STRIP IN SCH ×14 (10:07→23:15)
[2022-09-22] MEDS: INSULIN REGULAR, HUMAN 100 UNIT in IV NS 0.9% 99 ML IV PRN ×2 (10:15)
[2022-09-22] MEDS ORDERED: LORA10TA7 PO (11:08)
[2022-09-22] MEDS: CLONIDINE HCL 0.1 MG TABLET PO PRN ×2 (12:18→18:16)
[2022-09-22 12:39] LABS: CALCIUM, SERUM 7.7 mg/dL (8.5-10.1); CREATININE 0.9 mg/dL (0.6-1.3); POTASSIUM 3.2 mmol/L (3.5-5.1)
[2022-09-22] MEDS: POTASSIUM CL. PREMIX PERIPHER. 50 ML IV SCH ×2 (14:33→15:30)
[2022-09-22] MEDS: IV PREMIX NS +20MEQ KCL 1 L IV SCH ×2 (14:42→18:16)
[2022-09-22 17:25] LABS: CALCIUM, SERUM 9.3 mg/dL (8.5-10.1); CREATININE 0.8 mg/dL (0.6-1.3); POTASSIUM 4.1 mmol/L (3.5-5.1)
--- NOTE | 2022-09-22 18:44 | NUR ---
ICU/RN PT IS STILL ON INSULIN DRIP .ANION GAP-18.K-4.1.HR-130.BP 160/92.CLONIDINE PO GIVEN ORDERED.CONTINUE MONITORING.
--- NOTE | 2022-09-22 19:00 | NUR ---
RN NOTE Report received from Carmen BEDOYA, patient in bed, family at bedside, AAO x 4, in no acute distress, breathing unlabored, saturation at 100% on room air, ST on the monitor HR is 117. LFA 20g and PAUL midline patent and flushing well, with NS 1L with 20 mEq KCl infusing at 250 ml/hr, Insulin drip at 3.2 units/hr, and NS at TKO. Patient is continent and able to use commode. Clear liquid diet maintained per orders. Safety measures in place, bed is locked and at lowest position, bed alarm on, HOB elevated, call light within reach of patient. Will continue to monitor and reassess.
[2022-09-22] MEDS: Potassium Chloride 20 MEQ in IV NS 0.9% 1,000 ML IV SCH (20:50)
--- NOTE | 2022-09-22 23:07 | NUR ---
224 Billet Header unable to draw peripherally, blood drawn from midline. 2306 Telephone call from lab, was told blood drawn at 2241 has hemolyzed and will need to re-draw.
[2022-09-23] VITALS (21 sets, daily range): BP systolic 127–162; BP diastolic 60–99
--- NOTE | 2022-09-23 00:05 | NUR ---
Peanut Cleaner unable to draw peripherally after multiple attempts. Patient requested to have her rest for a few minutes before another attempt. Peanut Cleaner will come back and try again.
[2022-09-23] MEDS: BLOOD SUGAR DIAGNOSTIC 1 EACH STRIP IN SCH ×16 (00:09→15:03)
[2022-09-23 00:27] LABS: CREATININE 0.6 mg/dL (0.6-1.3); POTASSIUM 4.4 mmol/L (3.5-5.1)
[2022-09-23] MEDS: Potassium Chloride 20 MEQ in IV NS 0.9% 1,000 ML IV SCH ×2 (01:26→04:39)
--- NOTE | 2022-09-23 03:04 | NUR ---
RN NOTE Noted patient's HR at 140-150's. Patient complaining of severe pelvic pain, [place] administered but pain is persistent. Also noted a pinkish/reddish urine. Dr Rico was notified, order received for Morphine 4 mg IV Q4H PRN.
[2022-09-23] MEDS: HYDROCODONE/APAP 5/325MG TABLET PO PRN ×2 (03:20→19:55)
[2022-09-23] MEDS: MORPHINE SULFATE INJ 4 MG/ML DISP.SYRIN IV PRN ×4 (04:26→22:24)
[2022-09-23 05:35] LABS: BASOPHILS % (AUTO) 0.2 % (0.0-2.0); EOSINOPHILS % (AUTO) 0.1 % (0.0-6.0); HEMATOCRIT 32 % (33-45); LYMPHOCYTES # (AUTO) 1.3 K/uL (0.8-4.8); LYMPHOCYTES % (AUTO) 16.8 % (20.0-44.0); MEAN CORPUSCULAR HGB CONC 32 g/dl (31.0-36.0); MEAN CORPUSCULAR VOLUME 78 fL (82-100); MONOCYTES # (AUTO) 0.9 K/uL (0.1-1.30); MONOCYTES % (AUTO) 11.6 % (2.0-12.0); NEUTROPHILS # (AUTO) 5.4 K/uL (1.8-8.9); NEUTROPHILS % (AUTO) 71.3 % (43.0-81.0); PLATELET COUNT (AUTO) 200 K/uL (150-450); RED BLOOD CELL COUNT(AUTO) 4.05 MIL/uL (4.0-5.2); WHITE BLOOD COUNT (AUTO) 7.6 K/uL (4.3-11.0)
[2022-09-23] MEDS: INSULIN REGULAR, HUMAN 100 UNIT in IV NS 0.9% 99 ML IV PRN ×2 (06:40)
--- NOTE | 2022-09-23 06:42 | NUR ---
Per Shama of lab, blood drawn at 0500 has hemolyzed. She will come and re-draw.
--- NOTE | 2022-09-23 07:15 | NUR ---
ACTIVE DIRECTORY SPECIALIST NOTE RECEIVED PATIENT IN BED RESTING ALERT ORIENTEDX4 VERBALLY RESPONSIVE ON ROOM AIR O2:99% IV ACCESS ON PAUL MIDLINE AND LEFT FOREARM ON INSULIN DRIP 2.37 UNIT/HR.D5 1/2NS IV HYDRATION 150CC RUNNING,SAFETY MEASURE IMPLEMENT BED IN LOW POSITION AND LOCKED,PATIENT CONTIENT BOWEL/BLADDER USING BEDSIDE COMMODE,HEAD OF THE BED ELEVATED CALL LIGHT WITHIN REACH CONTINUE TO MONITOR.
[2022-09-23] MEDS: IV D5/0.45 NACL 1,000 ML IV PRN ×2 (08:00→14:55)
[2022-09-23] MEDS ORDERED: IBUPROFEN 600 MG TABLET PO PRN (08:30)
[2022-09-23] MEDS: PANTOPRAZOLE 40 MG VIAL IV SCH (08:39)
[2022-09-23] MEDS: ENOXAPARIN SODIUM 40 MG/0.4 ML DISP.SYRIN SQ SCH (08:40)
[2022-09-23 08:57] LABS: CALCIUM, SERUM 8.9 mg/dL (8.5-10.1); CREATININE 0.5 mg/dL (0.6-1.3); MAGNESIUM 1.5 mg/dL (1.8-2.4); POTASSIUM 3.8 mmol/L (3.5-5.1)
[2022-09-23] MEDS: PANTOPRAZOLE 40 MG/PACK PACK PO SCH (09:00)
[2022-09-23] MEDS ORDERED: PANTOPRAZOLE 40 MG/PACK PACK GT SCH (09:00)
[2022-09-23] MEDS: CEFTRIAXONE 1 G in IV D5W 50 ML IV SCH (09:49)
[2022-09-23] MEDS ORDERED: Magnesium 1GM/D5W 100ML PREMIX 100 ML IV SCH ×2 (10:00→11:00)
[2022-09-23] MEDS ORDERED: POTASSIUM CL. PREMIX PERIPHER. 50 ML IV SCH (12:00)
[2022-09-23 14:39] LABS: CALCIUM, SERUM 8.8 mg/dL (8.5-10.1); CREATININE 0.5 mg/dL (0.6-1.3); POTASSIUM 3.1 mmol/L (3.5-5.1)
--- NOTE | 2022-09-23 15:27 | NUR ---
RN NOTE PATIENT ANION GAP IS [address] JOHNSTON,DR JOHNSTON DISCONTINUE INSULIN DRIP AND D51/2NS CONTINUE TO MONITOR.
[2022-09-23] MEDS: POTASSIUM CL. PREMIX PERIPHER. 50 ML IV SCH ×2 (15:48→16:49)
[2022-09-23] MEDS ORDERED: Sodium Phosphate 15 MMOL in IV NS 0.9% 245 ML IV SCH (16:00)
[2022-09-23] MEDS ORDERED: DEXTROSE 50%-WATER 50 ML DISP.SYRIN IV PRN (16:00)
[2022-09-23] MEDS: IV NS 0.9% 1,000 ML IV PRN (17:16)
[2022-09-23] MEDS: BLOOD SUGAR DIAGNOSTIC 1 EACH STRIP VI SCH ×2 (17:35→21:12)
[2022-09-23] MEDS: INSULIN REGULAR, HUMAN 100 UNIT/ML 3 ML VIAL SQ PRN (17:37)
--- NOTE | 2022-09-23 18:45 | NUR ---
RN NOTE PATIENT REMAINS ALERT ORIENTED X4 VERBALLY RESPONSIVE ON ROOM AIR O2:99% ON IV HYDRATION NS 100CC/HR ALL DUE MEDS GIVEN MD ORDERED ON SODIUM PHOSPHORS IV 63.333CC/HR ONE TIME,KEPT CALL LIGHT WITHIN REACH KEPT HEAD OF THE BED ELEVATED ENDORSE NEXT COMING SHIFT FOR CONTINUATION OF CARE.
--- NOTE | 2022-09-23 19:00 | NUR ---
RN NOTE Report received from Raquel BEDOYA, patient in bed, family at bedside, AAO x 4, in no acute distress, breathing unlabored, saturation at 100% on room air, ST on the monitor HR is 122. LFA 20g and PAUL midline patent and flushing well, with NS 1L infusing at 100 ml/hr. Patient is continent and able to use commode. Clear liquid diet maintained per orders. Safety measures in place, bed is locked and at lowest position, bed alarm on, HOB elevated, call light within reach of patient. Will continue to monitor and reassess.
--- NOTE | 2022-09-23 20:12 | NUR ---
RN NOTE Telephone call to CT if they are able to do the ordered CT neck with contrast tonight, they said they will try to do it when they are done with the stat orders.
--- NOTE | 2022-09-23 20:15 | NUR ---
RN NOTE Throat swab collected, sent to lab
--- NOTE | 2022-09-23 20:48 | NUR ---
Patient signed consent for CT Neck with contrast, placed in chart
[2022-09-23] MEDS: *INSULIN REGULAR(HUMULIN R)HUM 100 UNIT/ML VIAL SQ PRN (21:14)
[2022-09-24] VITALS (22 sets, daily range): BP systolic 106–154; BP diastolic 61–90
[2022-09-24] MEDS: HYDROCODONE/APAP 5/325MG TABLET PO PRN ×5 (00:04→21:20)
[2022-09-24] MEDS: IV NS 0.9% 1,000 ML IV PRN ×3 (00:58→20:29)
[2022-09-24] MEDS: MORPHINE SULFATE INJ 4 MG/ML DISP.SYRIN IV PRN ×2 (03:19→08:23)
[2022-09-24 05:39] LABS: BASOPHILS % (AUTO) 0.3 % (0.0-2.0); EOSINOPHILS % (AUTO) 0.2 % (0.0-6.0); HEMATOCRIT 31 % (33-45); HEMOGLOBIN 9.9 g/dL (11.5-14.8); LYMPHOCYTES # (AUTO) 1.6 K/uL (0.8-4.8); LYMPHOCYTES % (AUTO) 25.2 % (20.0-44.0); MEAN CORPUSCULAR HGB CONC 32 g/dl (31.0-36.0); MEAN CORPUSCULAR VOLUME 76 fL (82-100); MONOCYTES # (AUTO) 0.9 K/uL (0.1-1.30); MONOCYTES % (AUTO) 14.3 % (2.0-12.0); NEUTROPHILS # (AUTO) 3.8 K/uL (1.8-8.9); PLATELET COUNT (AUTO) 208 K/uL (150-450); RED BLOOD CELL COUNT(AUTO) 3.99 MIL/uL (4.0-5.2); WHITE BLOOD COUNT (AUTO) 6.3 K/uL (4.3-11.0)
[2022-09-24 06:08] LABS: CALCIUM, SERUM 8.8 mg/dL (8.5-10.1); CREATININE 0.4 mg/dL (0.6-1.3); MAGNESIUM 1.6 mg/dL (1.8-2.4); PHOSPHORUS 3.3 mg/dL (2.5-4.9); POTASSIUM 3.2 mmol/L (3.5-5.1)
[2022-09-24] MEDS ORDERED: MENTHOL/CETYLPYRD (CEPACOL) 1 LOZ LOZENGE PO PRN (06:30)
[2022-09-24] MEDS: INSULIN REGULAR, HUMAN 100 UNIT/ML 3 ML VIAL SQ PRN ×3 (07:48→17:03)
[2022-09-24] MEDS: BLOOD SUGAR DIAGNOSTIC 1 EACH STRIP VI SCH ×4 (07:49→22:31)
[2022-09-24] MEDS: PANTOPRAZOLE 40 MG/PACK PACK PO SCH (08:04)
[2022-09-24] MEDS ORDERED: POTASSIUM CHLORIDE 20 MEQ TAB.PRT.SR PO ONE (08:30)
[2022-09-24] MEDS ORDERED: Magnesium 1GM/D5W 100ML PREMIX 100 ML IV SCH (08:30)
[2022-09-24] MEDS: ENOXAPARIN SODIUM 40 MG/0.4 ML DISP.SYRIN SQ SCH (09:04)
[2022-09-24] MEDS: CEFTRIAXONE 1 G in IV D5W 50 ML IV SCH (10:17)
--- NOTE | 2022-09-24 12:10 | NUR ---
SEEN PATIENT WITH ALL CARDIAC MONITORING EQUIPMENT REMOVED, INSTRUCTED/EDUCATED PATIENT THE IMPORTANCE OF THE MONITORING EQUIPMENT BUT REMAINS UNCOOPERATIVE AND PER PATIENT " I CAN DO WHATEVER I WANT, I DON'T NEED THIS MONITOR," CHARGE NURSE ALFA CAME AT BEDSIDE AND MADE AWARE ABOUT IT AND NOTIFIED KAM THAT PER PATIENT " I WOULD LIKE TO USE REGULAR BATHROOM," PER KAM " THAT IS FINE FOR TO UTILIZE BATHROOM INDEPENDENTLY WHILE OFF MONITOR." WILL CONTINUE TO MONITOR PATIENT. PATIENT REFUSING CARDIAC MONITORING. ASSISTED TO HALLWAY BATHROOM.
--- NOTE | 2022-09-24 12:45 | NUR ---
PATIENT IS BACK TO BED AFTER USING HALLWAY BATHROOM. MONITORED PATIENT BY CHECKING CONSTANTLY WHILE ON BATHROOM HALLWAY. SHIPPING MANAGER IN-PLACE.
--- NOTE | 2022-09-24 15:58 | NUR ---
PATIENT FOUND STANDING AT BEDSIDE WITH MONITORING EQUIPMENT REMOVED. ASKED TO USE THE "REGULAR RESTROOM" IN THE [place]. EXPLAINED THE IMPORTANCE OF WEARING MONITORING EQUIPMENT WHILE ADMITTED IN THE INTENSIVE CARE UNIT. OFFERED BEDSIDE COMMODE, PATIENT EXCLAIMED, "I DON'T WANT TO SHIT IN HERE, IM UNCOMFORTABLE." FOLLOWED UP WITH PRIMARY RN ALEXANDRE. PRIMARY RN SAYS THE PATIENT IS OKAY TO USE RESTROOM INDEPENDENTLY. ASSISTED PATIENT TO RESTROOM IN [place]. WILL INCREASE MONITORING TO ENSURE PATIENT SAFETY, WHILE PATIENT IS IN RESTROOM.
--- NOTE | 2022-09-24 16:18 | NUR ---
PATIENT BACK TO BED, AIRCRAFT RIVETER IN-PLACE AFTER PATIENT DONE USING HALLWAY BATHROOM. MONITORED CONSTANTLY BY VALET ATTENDANT BY CHECKING PATIENT WHILE ON BATHROOM FOR SAFETY.
--- NOTE | 2022-09-24 18:55 | NUR ---
TRANSFERRED PATIENT TO 306-BED 1 PER ORDER /PER PROTOCOL. BEDSIDE REPORT GIVEN TO ARNOLD Munroe FOR CONTINUITY OF CARE. BELONGINGS HANDED TO ARNOLD. PATIENT DENIES DISCOMFORT AT THIS TIME.
--- NOTE | 2022-09-24 19:45 | NUR ---
RN Opening Note Received patient in bed; awake, alert and oriented x 4. On room air; tolerating well. Not in any form of respiratory or cardiac distress noted at this time. No c/o pain or discomfort. With IV access on left upper arm 18g midline and left antecubital 20g; both patent, intact and saline locked. Able to make needs known. Safety precautions implemented: call light and table within reach, side rails up x 2, bed in lowest locked position. Will continue to monitor throughout shift.
--- NOTE | 2022-09-24 21:20 | NUR ---
RN Note Patient complained of pain on pelvic and vaginal area with 9/10 pain scale. PRN Alexandria 5/325 1 tab given po as ordered. Will continue to monitor and reassess patient.
[2022-09-24] MEDS: *INSULIN REGULAR(HUMULIN R)HUM 100 UNIT/ML VIAL SQ PRN (22:36)
--- NOTE | 2022-09-24 22:36 | NUR ---
RN Note Blood sugar checked - 288 mg/dl. 6u of regular insulin given sq as indicated per sliding scale. Will continue to monitor.
[2022-09-25] VITALS: BP 126/74
[2022-09-25 00:20] VITALS: BP 126/74
--- NOTE | 2022-09-25 00:30 | NUR ---
RN Note Patient kept complaining why she wasn't given enough foods like jello and juices. Explained to patient her condition; but still insist to give her food.
[2022-09-25] MEDS: HYDROCODONE/APAP 5/325MG TABLET PO PRN ×3 (01:55→10:41)
--- NOTE | 2022-09-25 01:55 | NUR ---
RN Note Patient complained of pain on pelvic and vaginal area with 10/10 pain scale. PRN Ossian 5/325 1 tab given po as ordered. Kept comfortable in bed. Will continue to monitor and reassess patient.
[2022-09-25 04:00] VITALS: BP 122/71
[2022-09-25 04:50] VITALS: BP 122/71
--- NOTE | 2022-09-25 06:05 | NUR ---
RN Note Patient signed the consent for CT of the neck with contrast but refused the procedure to be done today. Per patient, "her neck or throat is good now."
[2022-09-25] MEDS: INSULIN REGULAR, HUMAN 100 UNIT/ML 3 ML VIAL SQ PRN (06:11)
[2022-09-25] MEDS: IV NS 0.9% 1,000 ML IV PRN (06:47)
--- NOTE | 2022-09-25 07:00 | NUR ---
RN Closing Note Patient in bed; awake, a/o x 4. Stable on room air. In no acute distress. No c/o pain or discomfort. On tele monitoring with reading of ST hr-103 bpm. With IV access on left upper arm 18g midline; patent and intact infusing with NS 1L running @ 100 ml/hr; flushes well. All needs attended. Safety precautions maintained: call light and table within reach, side rails up x 2, bed in lowest locked position. Endorsed to morning shift for continuity of care.
--- NOTE | 2022-09-25 07:19 | NUR ---
COIL ASSEMBLER NOTE RECEIVED PATIENT IN BED AWAKE, ALERT AND ORIENTED X 3-4, ABLE TO MAKE NEEDS KNOWN. PATIENT IS ON ROOM AIR WITH EQUAL AND UNLABORED BREATHING WITH NO SIGNS OF RESPIRATORY DISTRESS. WITH IV ACCESS ON THE LEFT UPPER ARM MIDLINE, PATENT AND INTACT. COMFORT MEASURES PROVIDED. TOLERATED CLEAR LIQUID DIET. PATIENT WAS A LITTLE ANXIOUS TO GO HOME. HEALTH TEACHING DONE REGARDING MD ORDERS AND CURRENT PLAN OF CARE. AGREED TO WAIT FOR MD AND VERBALIZED UNDERSTANDING AND APPRECIATION. PATIENT IS AMBULATORY WITH NO FALL RISK. SAFETY MEASURES ENSURED WITH BED IN LOWEST LOCKED POSITION, SIDERAILS RAISED, CALL LIGHT WITHIN REACH AT ALL TIMES. WILL CONTINUE WITH PLAN OF CARE.
[2022-09-25] MEDS: BLOOD SUGAR DIAGNOSTIC 1 EACH STRIP VI SCH (07:46)
[2022-09-25 08:24] VITALS: BP 154/63
[2022-09-25] MEDS: ENOXAPARIN SODIUM 40 MG/0.4 ML DISP.SYRIN SQ SCH (09:00)
[2022-09-25] MEDS ORDERED: METF-442 PO (09:18)
[2022-09-25] MEDS ORDERED: AMOX500C2 PO (09:18)
--- NOTE | 2022-09-25 09:30 | NUR ---
SELF PROPELLED DREDGE OPERATOR NOTE SEEN BY DR. JOHNSTON WITH ORDER FOR DISCHARGE. HEALTH TEACHING DONE REGARDING DISCHARGE AND DISCHARGE INSTRUCTIONS. VERBALIZED UNDERSTANDING AND APPRECIATION. WILL CONTINUE WITH PLAN OF CARE.
[2022-09-25] MEDS: CEFTRIAXONE 1 G in IV D5W 50 ML IV SCH (10:00)
[2022-09-25] MEDS: PANTOPRAZOLE 40 MG/PACK PACK PO SCH (10:14)
--- NOTE | 2022-09-25 10:45 | NUR ---
UTILITY SYSTEMS REPAIRER OPERATOR NOTE PATIENT DISCHARGED ORDERED AROUND 1030AM. IV ACCESS REMOVED AND COVERED WITH DRY DRESSING, TOLERATED WELL. TELEBOX REMOVED AND GIVEN TO TECH. REFUSED BODY CHECK. HEALTH TEACHING DONE REGARDING DISCHARGE AND DISCHARGE ORDERS WITH AT BEDSIDE FOR HEALTH TEACHING. VERBALIZED UNDERSTANDING AND APPRECIATION. PATIENT PICKED UP BY , REFUSED TO BE ACCOMPANIED TO LOBBY ON A WHEELCHAIR. PATIENT DISCHARGED ORDERED AND ENDORSED ACCORDINGLY.
== END 2022-09-25 10:30 | disposition home or self-care (01) | DRG 420 ==
LOC: ER 17:14 → TRANSITION 23:31 → ICU 09-22 07:34 → TELE 09-24 19:10
PROVIDERS: ADMIT Nurse Practitioner Acute Care; ATTEND Internal Medicine
PROC: 05HF33Z Insertion of Infusion Device into Left Cephalic Vein, Percutaneous Approach (ICD-10-PCS; principal; 2022-09-22)
DX: E11.10 Type 2 diabetes mellitus with ketoacidosis without coma (principal); E66.9 Obesity, unspecified; I10 Essential (primary) hypertension; E86.0 Dehydration; J02.9 Acute pharyngitis, unspecified; Z68.33 Body mass index [BMI] 33.0-33.9, adult; Z20.822 Contact with and (suspected) exposure to COVID-19
CPT/HCPCS: 36415; 36600; 71045-TC; 80048-TC; 80061-TC; 80076-TC; 81001; 82803-TC; 82962-TC; 83605-TC; 83690-TC; 83735-TC; 84100-TC; 84703-TC; 85025-TC; 87040-TC; 87210-TC; 87491; 87591; A4223; A6403; A9563; C9113; G0378; J0696; J1170; J1650; J1815; J2270; J2405; J3475; J3480; J3490; J7030; J7042; J7050; J7060; Q9967

== ENCOUNTER 2023-05-16 20:43 | Emergency (ER) | payer OTHER ==
[~2023-05-16] VITALS: Ht 165.1 cm; Wt 139.7 kg
[~2023-05-16 20:43] MED LIST changes: +AMOX500C2 PO; -BENZ-13 PO; -BLOO-1281 MC; -FLUC150T PO; -HYDR-3980 PO; -LANC-576 MC; -METF-440 PO; +METF-442 PO
[2023-05-16 23:25] VITALS: TEMP 98.5
[2023-05-16] MEDS ORDERED: ACETAMINOPHEN ES 500 MG TABLET ONE (23:40)
[2023-05-16] MEDS: ACETAMINOPHEN 325 MG TABLET PO ONE (23:56)
[2023-05-17] MEDS ORDERED: ONDANSETRON HCL/PF 4 MG/2 ML VIAL IV ONE
[2023-05-17] MEDS ORDERED: ONDANSETRON 4 MG TAB.RAPDIS ONE (00:05)
[2023-05-17] MEDS: ONDANSETRON 4 MG TAB.RAPDIS SL ONE (00:09)
[2023-05-17 00:35] LABS: BASOPHILS % (AUTO) 0.2 % (0.0-2.0); EOSINOPHILS # (AUTO) 0.2 K/uL (0.0-0.7); EOSINOPHILS % (AUTO) 1.5 % (0.0-6.0); HEMATOCRIT 32 % (33-45); HEMOGLOBIN 10.4 g/dL (11.5-14.8); LYMPHOCYTES # (AUTO) 3.2 K/uL (0.8-4.8); LYMPHOCYTES % (AUTO) 22.1 % (20.0-44.0); MEAN CORPUSCULAR HEMOGLOBIN 26 PG (26.0-33.0); MEAN CORPUSCULAR HGB CONC 32 g/dl (31.0-36.0); MEAN CORPUSCULAR VOLUME 80 fL (82-100); MONOCYTES % (AUTO) 6.7 % (2.0-12.0); NEUTROPHILS # (AUTO) 9.9 K/uL (1.8-8.9); NEUTROPHILS % (AUTO) 69.5 % (43.0-81.0); PLATELET COUNT (AUTO) 269 K/uL (150-450); RED BLOOD CELL COUNT(AUTO) 4.03 MIL/uL (4.0-5.2); RED CELL DISTRIBUTION WIDTH 16.8 % (11.5-15.0); WHITE BLOOD COUNT (AUTO) 14.2 K/uL (4.3-11.0)
[2023-05-17 00:38] LABS: APPEARANCE,URINE CLEAR (CLEAR); BILIRUBIN,URINE NEGATIVE (NEGATIVE); BLOOD, URINE NEGATIVE Ery/uL (NEGATIVE); COLOR,URINE YELLOW (YELLOW); KETONES,URINE NEGATIVE (NEGATIVE); LEUKOCYTE ESTERASE ,URINE NEGATIVE (NEGATIVE); NITRITE, URINE NEGATIVE (NEGATIVE); PH,URINE 5.5 (5.0-8.0); PROTEIN,URINE NEGATIVE (NEGATIVE); UGLUCOSE NEGATIVE (NEGATIVE); UROBILINOGEN,URINE 0.2 EU/dL (0.2)
[2023-05-17 00:55] LABS: INR 0.91 (0.91-1.10); PARTIAL THROMBOPLASTIN TIME 29.9 SEC (24.3-34.3); PROTHROMBIN TIME 9.7 SECS (9.2-11.1)
[2023-05-17 01:45] LABS: ALBUMIN 2.7 g/dL (3.4-5.0); BILIRUBIN,DIRECT 0.1 mg/dL (0.0-0.2); BILIRUBIN,TOTAL 0.1 mg/dL (0.2-1.0); CALCIUM, SERUM 8.7 mg/dL (8.5-10.1); CREATININE 0.5 mg/dL (0.6-1.3); POTASSIUM 3.9 mmol/L (3.5-5.1); TOTAL PROTEIN, SERUM 7.1 g/dL (6.4-8.2)
[2023-05-17 04:33] VITALS: BP 128/80; O2SAT 100
== END 2023-05-17 04:34 | disposition home or self-care (01) ==
LOC: ER 20:58
DX: O26.893 Other specified pregnancy related conditions, third trimester (principal); O24.913 Unspecified diabetes mellitus in pregnancy, third trimester; O16.3 Unspecified maternal hypertension, third trimester; J06.9 Acute upper respiratory infection, unspecified; R10.31 Right lower quadrant pain; Z3A.28 28 weeks gestation of pregnancy; Z60.2 Problems related to living alone; Z79.84 Long term (current) use of oral hypoglycemic drugs; Z79.899 Other long term (current) drug therapy; Z20.822 Contact with and (suspected) exposure to COVID-19
CPT/HCPCS: 99284; 87426; 87804 ×2; 81003; 36415; 76856; 85025; 80048; 80076; 85730; Q0162